=== PATIENT | male | born 1990 | race Caucasian/White ===

== ENCOUNTER 2018-08-07 00:13 | Emergency (ER) | payer MEDICAID ==
[2018-08-07] MEDS ORDERED: DEXAMETHASONE 4 MG TAB PO ONE (01:11)
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
[2018-08-07 01:26] VITALS: BP 107/84
== END 2018-08-07 01:25 | disposition home or self-care (01) ==
DX: R07.0 Pain in throat (principal)

== ENCOUNTER 2018-08-25 19:24 | Emergency (ER) | payer MEDICAID ==
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
[2018-08-25 22:03] VITALS: BP 127/77
== END 2018-08-25 22:03 | disposition home or self-care (01) ==
LOC: EDUNIT#
DX: S40.012A Contusion of left shoulder, initial encounter (principal); M54.2 Cervicalgia; F17.200 Nicotine dependence, unspecified, uncomplicated; V03.10XA Pedestrian on foot injured in collision with car, pick-up truck or van in traffic accident, initial encounter; Y92.410 Unspecified street and highway as the place of occurrence of the external cause

== ENCOUNTER 2018-11-11 19:39 | Emergency (ER) | payer MEDICAID | END 2018-11-11 20:14 | disposition home or self-care (01) ==